=== PATIENT | female | born 1990 | race Hispanic/Latino ===

== ENCOUNTER 2025-09-21 14:08 | Emergency (ER) | payer SELFPAY ==
[2025-09-21 14:53] LABS: Glucose, Urine (Dipstick) Normal (Negative); Leukocyte 100 (Negative); Protein, Urine (Dipstick) Negative (Neg-Trace); Specific Gravity, Urine 1.020 (1.005-1.030)
[2025-09-21 15:08] LABS: #Basophils 0.05 10x3/uL (0.0-0.2); #Eosinophils 0.30 10x3/uL (0.0-0.5); #Monocytes 0.80 10x3/uL (0.0-1.1); #Neutrophils 5.80 10x3/uL (1.5-8.4); %Basophils 0.5 % (0.0-2.0); %Eosinophils 2.7 % (0.0-6.0); %Lymphocytes 36.2 % (18.0-47.0); %Monocytes 7.3 % (0.0-10.0); %Neutrophils 53.0 % (40.0-75.0); Hematocrit 35.0 % (34.9-44.5); Hemoglobin 11.9 g/dL (12.0-15.5); Mean Corpuscular Hemoglobin 29.0 pg (27.0-33.0); Mean Corpuscular Volume 85.2 fL (81.6-98.3); Platelet Count 418 10x3/uL (150-450); Red Blood Cell (RBC) Count 4.11 10x6/uL (3.90-5.03); White Blood Cell (WBC) Count 10.94 10x3/uL (3.5-10.5)
[2025-09-21 15:28] LABS: ALT (SGPT) 8 U/L (Less than 34); AST (SGOT) 23 U/L (11-34); Albumin 4.0 g/dL (3.1-4.5); Alkaline Phosphatase 57 U/L (40-110); Anion Gap 12 mmol/L (10-20); BUN (Urea Nitrogen) 10 mg/dL (7.0-18.7); Bilirubin, Total 0.2 mg/dL (0.3-1.2); Calc. Creatinine Clearance 0 mL/min (70-130); Calcium 9.2 mg/dL (7.8-10.44); Carbon Dioxide 23 mmol/L (22-29); Chloride 106 mmol/L (98-107); Globulin 3.4 g/dL (2.4-3.5); Glucose 93 mg/dL (70-105); Potassium 3.6 mmol/L (3.5-5.1); Sodium 137 mmol/L (136-145)
[2025-09-21 15:46] LABS: Bacteria/HPF 2+ HPF (None Seen); CAUTI Indications for Culture Pelvic or flank pain
[2025-09-21 15:47] LABS: Yeast-Budding Rare HPF (None Seen)
[2025-09-21 15:48] LABS: Mucous/LPF 1+ LPF (<2+)
[2025-09-21 15:49] LABS: Urine Culture Reflex No No
== END 2025-09-21 19:26 | disposition home or self-care (01) ==
LOC: CSHERS 14:08
DX: O09.91 Supervision of high risk pregnancy, unspecified, first trimester (principal); O99.891 Other specified diseases and conditions complicating pregnancy; R82.71 Bacteriuria; O9A.211 Injury, poisoning and certain other consequences of external causes complicating pregnancy, first trimester; S39.012A Strain of muscle, fascia and tendon of lower back, initial encounter; I10 Essential (primary) hypertension; Z75.3 Unavailability and inaccessibility of health-care facilities; Z3A.01 Less than 8 weeks gestation of pregnancy; V89.2XXA Person injured in unspecified motor-vehicle accident, traffic, initial encounter
CPT/HCPCS: 36415; 76856; 80053; 81001; 84702; 85025; 86900; 86901